=== PATIENT | male | born 1990 | race Two or more races ===

== ENCOUNTER 2024-05-05 21:24 | Inpatient (IN) | payer MEDICAID, OTHER ==
[~2024-05-05] VITALS: Ht 162.6 cm; Wt 80.4 kg
--- NOTE | 2024-05-05 22:06 | ED.PDOC ---
HPI Allergic reaction HPI Comments HPI: Poor Historian. 33y M who presents to the ED for chief complaint of allergic reaction. Pt presents to the ED with the following ED course" - pt states he had oysters 5 hours prior to ED arrival - pt states 1 hours prior, he "felt something in my throat" and came to the ED for further evaluation - pt in no noted current respiratory distress with noted 02 sat of 100 %On room air with all other vitals in normal range in the ED Past Medcial History: Denies any Past Surgical History: Denies any Denies any allergies to any medications. REVIEW OF SYSTEMS: CONSTITUTIONAL: Denies acute: fever, diaphoresis, chills, generalized weakness. HEAD: Denies acute: headache, photophobia Eyes: Denies acute: Double vision, vision loss, eye pain, eye discharge. EARS: Denies acute: tinnitus, hearing loss, ear discharge, ear pain, THROAT: Denies acute: swelling, difficulty swallowing , pain with swallowing, change in voice. NECK: Denies acute: neck pain, neck swelling, stiff neck. HEART: Denies acute : chest pain, palpitations, LUNGS: Denies acute: SOB, wheezing, cough, hemoptysis ABDOMEN: Denies acute: abdominal pain, Nausea, Vomiting, diarrhea, melena , hematemesis, hematochezia SKIN: Denies acute: rash, redness, lesions, itchiness. EXTREMITIES: Denies acute: calf pain, numbness, tingling, weakness, denies pain in extremity. Denies acute: Low back pain. Neuro: Denies acute: focal neurological deficit, motor or sensory focal neurological deficit, tremors, seizure like activity, confusion, dizziness, change in mental status, loss of bowel or bladder function, cauda equina like symptoms. : Denies acute: dysuria, hematuria, flank pain, increase in urinary frequency. PSYCH: Denies acute: hallucination, suicidal ideation, homicidal ideation. PHYSICAL EXAM: General: no acute distress, awake and alert. Head: normocephalic, atraumatic. Neck: supple, trachea is midline, no swelling. Throat: Normal phonation. Mild uvula swelling. Otherwise no airway obstruction, no drooling, no tripod, no stridor, no erythema, no exudates Eyes:, no erythema, no purulent discharge, no proptosis, no icterus. Heart: regular rate, regular rhythm, no significant murmur appreciated. Lungs: no apparent respiratory distress, Able to speak in full sentences. No wheezing, no rhonchi, no crackles. No stridors Clear to auscultation bilaterally. Abdomen: non tender to palpation, non distended, soft, no guarding, no rebound, + bowel sounds. Neuro: Awake, Alert, oriented to name, self, situation, follows commands GCS=15. Speech is normal. Skin: no petechia, no purpura, no cyanosis, non-pale, not jaundice. Lower extremities: --no - Pitting edema no deformity, no focal swelling, no calf TTP. Makes eye contact. moves all four extremities. Face: no apparent facial droop. Ambulating in the ED independently. Chief Complaint: Allergic Reaction Time Seen by MD: 22:15 Reviewed Notes: Nurses Notes, Allergies Allergies: Coded Allergies: No Known Drug Allergy (Verified Allergy, Unknown, 05/05/24) Information Source: Patient Mode of Arrival: Ambulatory Brought in by: self Was a procedure done? Was a procedure done?: No X-Ray, Labs, Meds, VS Vital Signs Date Time Temp Pulse Resp B/P (MAP) Pulse Ox O2 Delivery O2 Flow Rate FiO2 05/05/24 21:45 97.7 74 22 155/96 (115) 100 05/05/24 21:45 22 100 Room Air* 0 21 Lab Test 05/06/24 01:16 Range/Units White Blood Count 12.8 H 4.4-10.8 10^3/uL Red Blood Count 6.94 H 4.5-5.90 10^6/uL Hemoglobin 19.8 H 13.5-17.5 g/dL Hematocrit 58.2 H 41.0-53.0 % Mean Corpuscular Volume 83.9 80.0-100.0 fL Mean Corpuscular Hemoglobin 28.5 28.0-32.0 pg Mean Corpuscular Hemoglobin Concent 34.0 32.0-36.0 g/dL Red Cell Distribution Width 14.0 11.8-14.3 % Platelet Count 261 140-450 10^3/uL Mean Platelet Volume 8.4 6.9-10.8 fL Neutrophils (%) (Auto) 87.2 H 37.0-80.0 % Lymphocytes (%) (Auto) 10.4 10.0-50.0 % Monocytes (%) (Auto) 1.8 0.0-12.0 % Eosinophils (%) (Auto) 0.3 0.0-7.0 % Basophils (%) (Auto) 0.3 0.0-2.0 % Neutrophils # (Auto) 11.1 H 1.6-8.6 10 ^3/uL Lymphocytes # (Auto) 1.3 0.4-5.4 10 ^3/uL Monocytes # (Auto) 0.2 0-1.3 10 ^3/uL Eosinophils # (Auto) 0 0-0.8 10 ^3/uL Basophils # (Auto) 0 0-0.2 10 ^3/uL Nucleated Red Blood Cells 0.3 % Platelet Estimate Pending Sodium Level 138 136-145 mmol/L Potassium Level 4.1 3.5-5.1 mmol/L Chloride Level 103 98-107 mmol/L Carbon Dioxide Level 30 20-31 mmol/L Anion Gap 5 5-15 Blood Urea Nitrogen 12 9-23 mg/dL Creatinine 1.08 0.700-1.30 mg/dL Glomerular Filtration Rate Calc 94 >90 mL/min BUN/Creatinine Ratio 11.1 10.0-20.0 Serum Glucose 104 74-106 mg/dL Calcium Level 11.2 H 8.7-10.4 mg/dL Total Bilirubin 0.7 0.2-1.0 mg/dL Aspartate Amino Transferase (AST) 18 13-40 U/L Alanine Aminotransferase (ALT) 34 7-40 U/L Alkaline Phosphatase 89 46-116 U/L Total Protein 8.9 H 5.7-8.2 g/dL Albumin 5.4 H 3.2-4.8 g/dL Current Medications Medications (Trade) Dose Ordered Sig/Jarrett Route Start Time Stop Time Status Last Admin Methylprednisolone Sodium Succinate (Solu Medrol) 125 mg ONCE ONCE IV 05/05/24 22:15 05/05/24 22:16 DC 05/05/24 23:23 Famotidine (Pepcid Injection) 20 mg ONCE ONCE IV 05/05/24 22:15 05/05/24 22:16 DC 05/05/24 23:44 Diphenhydramine HCl (Benadryl Injection) 25 mg ONCE ONCE IV 05/05/24 22:15 05/05/24 22:16 DC 05/05/24 23:22 Dexamethasone Sodium Phosphate (Decadron Injection) 10 mg ONCE ONCE IV 05/06/24 00:18 05/06/24 00:20 DC 05/06/24 00:23 Patient Education/Counseling: Diagnosis, Treatment Family Education/Counseling: No Family Present Departure 1 Departure Time of Disposition: 02:04 Impression: Primary Impression: Allergic reaction Additional Impression: Uvulitis Disposition: ADMITTED INPATIENT Admit to: [facility] Condition: Guarded Discharged With: Self I personally scribed for KENNY WHITNEY DO ([email or web address]) on 05/05/24 at 22:06. Electronically submitted by Stephane Freeman ([facility]). I personally scribed for KENNY WHITNEY DO ([email or web address]) on 05/05/24 at 22:15. Electronically submitted by Stephane Freeman ([facility]). KENNY WHITNEY DO May 05, 2024 22:06
--- NOTE | 2024-05-05 22:43 | DVH ---
EXAMINATION: AP portable chest radiograph CLINICAL HISTORY: allergic rxn COMPARISON: None FINDINGS: No dominant consolidation. No sizable pleural effusion or pneumothorax. The cardiomediastinal silhoue tte appears within normal limits given technique. IMPRESSION: No acute cardiopulmonary findings as visualized.
[2024-05-05] MEDS: diphenhdrAMINE HCL 50 MG/1 ML VL IV ONE (23:22)
[2024-05-05] MEDS: methylPREDNISolone SOD SUCC 125 MG/2 ML VL IV ONE (23:23)
[2024-05-05] MEDS: FAMOTIDINE (10MG/ML) 2ML VL IV ONE (23:44)
[2024-05-06] MEDS ORDERED: DexAMETHasone INJECTION 10 MG in D5W 5% 50 ML IV ONE (00:15)
[2024-05-06] MEDS: DexAMETHasone SOD PHOS 10MG/1ML VIAL INJ IV ONE (00:23)
[2024-05-06 01:46] LABS: Alanine Aminotransferase 34 U/L (7-40); Alkaline Phosphatase 89 U/L (46-116); Anion Gap 5 (5-15); Aspartate Aminotransferase 18 U/L (13-40); BUN/Creatinine Ratio 11.1 (10.0-20.0); Bilirubin, Total 0.7 mg/dL (0.2-1.0); Blood Urea Nitrogen 12 mg/dL (9-23); Carbon Dioxide 30 mmol/L (20-31); Chloride 103 mmol/L (98-107); Glucose 104 mg/dL (74-106); Potassium 4.1 mmol/L (3.5-5.1); Sodium 138 mmol/L (136-145)
[2024-05-06 01:47] LABS: Eosinophils # (auto) 0 10 ^3/uL (0-0.8); Lymphocytes # (auto) 1.3 10 ^3/uL (0.4-5.4); Mean Corpuscular Hemoglobin 28.5 pg (28.0-32.0); Monocytes # (auto) 0.2 10 ^3/uL (0-1.3); White Blood Cell 12.8 10^3/uL (4.4-10.8)
[2024-05-06 01:49] LABS: Basophils # (auto) 0 10 ^3/uL (0-0.2); Basophils % (auto) 0.3 % (0.0-2.0); Eosinophils % (auto) 0.3 % (0.0-7.0); Hemoglobin 19.8 g/dL (13.5-17.5); Lymphocytes % (auto) 10.4 % (10.0-50.0); Mean Corpuscular Volume 83.9 fL (80.0-100.0); Monocytes % (auto) 1.8 % (0.0-12.0); Neutrophils # (auto) 11.1 10 ^3/uL (1.6-8.6); Neutrophils % (auto) 87.2 % (37.0-80.0); Nucleated Red Blood Cells % 0.3 %; Platelet Count (auto) 261 10^3/uL (140-450); Red Blood Cells 6.94 10^6/uL (4.5-5.90)
[2024-05-06 01:51] LABS: Hematocrit 58.2 % (41.0-53.0)
[2024-05-06 01:54] LABS: Albumin 5.4 g/dL (3.2-4.8); Calcium 11.2 mg/dL (8.7-10.4); Total Protein 8.9 g/dL (5.7-8.2)
[2024-05-06 02:07] LABS: Platelet Estimate Adequate
[2024-05-06] MEDS: SODIUM CHLORIDE 0.9% 1,000 ML IV ONE (02:25)
[2024-05-06] MEDS ORDERED: THROAT LOZENGES(CEPASTAT) MT PRN (03:45)
--- NOTE | 2024-05-06 04:28 | DVHHPRES ---
History of Present Illness Resident Creating Document: RAEANN ZHANG RESIDENT History of Present Illness Patient is a 33-year-old male with no significant past medical history the ED with a chief complaint of swelling and difficulty breathing for 3-4 hours prior presentation. Patient reports that he had oysters about 5 hours before coming to the ED. reports sensation of swelling in the throat with increasing difficulty of breathing. On arrival to the ED are as per the records he had SpO2 100%. Patient reports experiencing similar episodes before, latest about 2 years ago when he had cessation of inflammation in the throat and it resolved on its own. Patient denied any food allergy, any known drug allergy. Patient denied associated hives/rashes on the body, itching, headache, fever, chills, body aches, cold, congestion. Medical history: None Past surgical history: None Social history: Patient denies smoking tobacco or marijuana, illicit drugs. Reports occasional alcohol consumption No medications at home Review of Systems Review of Systems Patient reports he is feeling better since the time he came to the ED but still has sensation of swelling, irritation in his throat. Denies shortness of breath, chest pain, nausea, vomiting, dizziness, headache Allergies: Coded Allergies: No Known Drug Allergy (Verified Allergy, Unknown, 05/05/24) Exam Vital Signs Vital Signs Date Time Temp Pulse Resp B/P (MAP) Pulse Ox O2 Delivery O2 Flow Rate FiO2 05/05/24 21:45 97.7 74 22 155/96 (115) 100 05/05/24 21:45 Room Air* 0 21 Exam Physical Examination Constitution: Patient was alert and oriented to time, place and and does not appear to be in any acute distress Gen - no pallor, no icterus, no cyanosis, no clubbing, no LAD, no edema . Skin - Patients skin is warm and dry. HEENT - normocephalic, atraumatic, moist mucous membranes. Neck - full ROM, no LAD Pulmonary - B/L vesicular breath sounds. no crackles , no wheezing, no stridor. cardiovascular - normal S1,S2 heard. no murmurs heard. GI - soft abdomen without tenderness to palpation . no hepatospleenomegaly. Justus wel sounds normoactive Neurological - Bilateral upper extremity strength 5/5, bilateral lower extremity strength 5/5, no facial droop, normal speech, no tremor, no sensory deficiets. Labs/Xrays Labs Test 05/06/24 01:16 Range/Units White Blood Count 12.8 H 4.4-10.8 10^3/uL Red Blood Count 6.94 H 4.5-5.90 10^6/uL Hemoglobin 19.8 H 13.5-17.5 g/dL Hematocrit 58.2 H 41.0-53.0 % Mean Corpuscular Volume 83.9 80.0-100.0 fL Mean Corpuscular Hemoglobin 28.5 28.0-32.0 pg Mean Corpuscular Hemoglobin Concent 34.0 32.0-36.0 g/dL Red Cell Distribution Width 14.0 11.8-14.3 % Platelet Count 261 140-450 10^3/uL Mean Platelet Volume 8.4 6.9-10.8 fL Neutrophils (%) (Auto) 87.2 H 37.0-80.0 % Lymphocytes (%) (Auto) 10.4 10.0-50.0 % Monocytes (%) (Auto) 1.8 0.0-12.0 % Eosinophils (%) (Auto) 0.3 0.0-7.0 % Basophils (%) (Auto) 0.3 0.0-2.0 % Neutrophils # (Auto) 11.1 H 1.6-8.6 10 ^3/uL Lymphocytes # (Auto) 1.3 0.4-5.4 10 ^3/uL Monocytes # (Auto) 0.2 0-1.3 10 ^3/uL Eosinophils # (Auto) 0 0-0.8 10 ^3/uL Basophils # (Auto) 0 0-0.2 10 ^3/uL Nucleated Red Blood Cells 0.3 % Platelet Estimate Adequate Sodium Level 138 136-145 mmol/L Potassium Level 4.1 3.5-5.1 mmol/L Chloride Level 103 98-107 mmol/L Carbon Dioxide Level 30 20-31 mmol/L Anion Gap 5 5-15 Blood Urea Nitrogen 12 9-23 mg/dL Creatinine 1.08 0.700-1.30 mg/dL Glomerular Filtration Rate Calc 94 >90 mL/min BUN/Creatinine Ratio 11.1 10.0-20.0 Serum Glucose 104 74-106 mg/dL Calcium Level 11.2 H 8.7-10.4 mg/dL Total Bilirubin 0.7 0.2-1.0 mg/dL Aspartate Amino Transferase (AST) 18 13-40 U/L Alanine Aminotransferase (ALT) 34 7-40 U/L Alkaline Phosphatase 89 46-116 U/L Total Protein 8.9 H 5.7-8.2 g/dL Albumin 5.4 H 3.2-4.8 g/dL Assessment/Plan Assessment/Plan Assessment ? Acute allergic reaction with uvular and throat swelling ? Acute pharyngitis likely viral versus bacterial, rule out streptococcal pharyngitis SIRS positive Plan - patient given Decadron 10 mg, methylprednisolone 125 IV - 1 L fluid bolus - rapid streptococcal throat screen pending, started on Augmentin - prednisone 40mg daily - acetaminophen and ibuprofen p.r.n. for throat pain - lozenges Goals of care discussed with the patient for over 19 minutes. Full code Plan discussed with Dr. Babin Plan discussed with: Patient Date of Service: May 06, 2024 Billing Provider: IVONNE BABIN MD Common Visit Codes: [id number] INP/OBS CARE (HIGH) RAEANN ZHANG RESIDENT May 06, 2024 04:28 IVONNE BABIN MD May 06, 2024 17:48
[2024-05-06] MEDS ORDERED: IBUPROFEN 400 MG TAB PO PRN (04:30)
[2024-05-06] MEDS ORDERED: ACETAMINOPHEN 325 MG TAB PO PRN (04:30)
[2024-05-06 04:34] LABS: Basophils # (auto) 0 10 ^3/uL (0-0.2); Eosinophils # (auto) 0 10 ^3/uL (0-0.8); Hemoglobin 18.6 g/dL (13.5-17.5); Lymphocytes % (auto) 7.7 % (10.0-50.0); Mean Corpuscular Hemoglobin 28.2 pg (28.0-32.0); Monocytes # (auto) 0.1 10 ^3/uL (0-1.3); Monocytes % (auto) 0.9 % (0.0-12.0); Neutrophils # (auto) 11.3 10 ^3/uL (1.6-8.6); Nucleated Red Blood Cells % 0.2 %; White Blood Cell 12.4 10^3/uL (4.4-10.8)
[2024-05-06 04:36] LABS: Basophils % (auto) 0.3 % (0.0-2.0); Hematocrit 55.8 % (41.0-53.0); Mean Corpuscular Hgb Conc. 33.3 g/dL (32.0-36.0); Mean Corpuscular Volume 84.7 fL (80.0-100.0); Neutrophils % (auto) 91.1 % (37.0-80.0); Platelet Count (auto) 249 10^3/uL (140-450); Red Blood Cells 6.59 10^6/uL (4.5-5.90)
[2024-05-06 04:47] LABS: Alanine Aminotransferase 30 U/L (7-40); Alkaline Phosphatase 84 U/L (46-116); Anion Gap 9 (5-15); Aspartate Aminotransferase 18 U/L (13-40); BUN/Creatinine Ratio 10.5 (10.0-20.0); Bilirubin, Total 0.6 mg/dL (0.2-1.0); Blood Urea Nitrogen 11 mg/dL (9-23); CRP High Sensitivity 0.06 mg/dL (<1.0); Carbon Dioxide 24 mmol/L (20-31); Potassium 3.8 mmol/L (3.5-5.1); Sodium 141 mmol/L (136-145)
[2024-05-06 04:53] LABS: Calcium 10.6 mg/dL (8.7-10.4); Chloride 108 mmol/L (98-107); Glucose 116 mg/dL (74-106); Total Protein 8.6 g/dL (5.7-8.2)
[2024-05-06 05:07] LABS: Erythrocyte Sedimentation Rate 2 mm/hr (0-20)
[2024-05-06 05:20] VITALS: BP 117/75; PULSE 91; RESP 18; TEMP 97.7; O2SAT 97
[2024-05-06 08:53] LABS: Rapid Influenza A Negative (Negative); Rapid Influenza B Negative (Negative)
[2024-05-06 08:54] LABS: COVID19 ANTIGEN SOFIA FIA NEGATIVE (NEGATIVE)
[2024-05-06 09:30] VITALS: BP 130/55; PULSE 74; RESP 16; TEMP 99.1; O2SAT 96
[2024-05-06] MEDS ORDERED: AMOXICILLIN/CLAVUL 875 MG TAB PO SCH (10:00)
[2024-05-06] MEDS ORDERED: predniSONE 20 MG TAB PO SCH (10:00)
== END 2024-05-06 11:19 | disposition left against medical advice (07) | DRG 115 ==
LOC: ER 21:24 → OVERFLOW 05-06 03:45
PROVIDERS: ADMIT Nurse Practitioner Acute Care; ATTEND Nurse Practitioner Acute Care
DX: K12.2 Cellulitis and abscess of mouth (principal); R65.10 Systemic inflammatory response syndrome (SIRS) of non-infectious origin without acute organ dysfunction; J02.0 Streptococcal pharyngitis; T78.40XA Allergy, unspecified, initial encounter; J02.8 Acute pharyngitis due to other specified organisms; Z20.822 Contact with and (suspected) exposure to COVID-19
CPT/HCPCS: 36415; 71045; 80053; 85025; 85652; 86141; 87426; 87804; 96361; 96374; 96375; G0378; J1100; J3490; J7060